=== PATIENT | female | born 1965 | race Caucasian/White ===

== ENCOUNTER 2017-04-02 19:02 | Emergency (ER) | payer BC ==
[2017-04-02 19:15] VITALS: BP 171/86; PULSE 89; RESP 18; TEMP 97.1
[2017-04-02] MEDS ORDERED: HYDROcodone/APAP 5-325MG 1 EACH TAB PO STA (19:30)
[2017-04-02] MEDS ORDERED: ORPHENADRINE 30 MG/ML 2 ML VIAL IM STA (19:31)
--- NOTE | 2017-04-02 19:38 | ED ---
Neck Injury/Pain HPI - General Chief Complaint: Neck Pain/Injury Stated Complaint: neck pain Time Seen by Provider: 04/02/17 19:21 Source: RN notes reviewed Mode of arrival: ambulatory Limitations: no limitations - History of Present Illness Initial Comments: 51-year-old female presents to the ER with her daughter with moderate to severe neck pain. She states that she has been doing some increased work at the cabin and had gradual onset of increased neck pain and muscle stiffness on the left hand side of her neck. She states that she does not remember a specific injury or trauma that caused the discomfort. The pain started yesterday afternoon and has increased since then. She has decreased range of motion with her neck due to stiffness and pain. She states that she did try to take some over-the- counter pain medication however this did not help. She denies any other symptoms including headache, vision change, ear pain, swelling, difficulty swallowing, arm numbness or tingling, loss of bladder or bowel control, vomiting. - Related Data Home Medications Medication Instructions Recorded Confirmed Citalopram Hydrobromide [CeleXA] 20 mg PO DAILY 03/05/15 04/02/17 Minocycline HCl 100 mg PO 04/02/17 Previous Rx's Medication Instructions Recorded Cyclobenzaprine [Flexeril] 5 mg PO TID #20 tablet 04/02/17 Diazepam [Valium] 10 mg PO TID #20 tablet 04/02/17 HYDROcodone/APAP 5-325MG [[place] 5] 1 each PO Q6HR PRN #20 tab 04/02/17 Allergies Allergy/AdvReac Type Severity Reaction Status Date / Time Penicillins Allergy Rash/Hives Verified 04/28/15 08:14 Review of Systems ROS Statement: Those systems with pertinent positive or pertinent negative responses have been documented in the HPI. ROS Other: All systems not noted in ROS Statement are negative. Past Medical History Past Medical History: Skin Disorder Additional Past Medical History / Comment(s): wound lt inner leg above ankle History of Any Multi-Drug Resistant Organisms: None Reported Past Surgical History: Cholecystectomy, Hysterectomy Past Anesthesia/Blood Transfusion Reactions: No Reported Reaction Past Psychological History: No Psychological Hx Reported Smoking Status: Never smoker Past Alcohol Use History: Occasional Past Drug Use History: None Reported - Past Family History Mother Family Medical History: No Reported History General Exam Limitations: no limitations General appearance: alert, in distress (Secondary to pain) Head exam: Present: atraumatic, normocephalic Eye exam: Present: normal appearance, PERRL, EOMI Pupils: Present: normal accommodation ENT exam: Present: normal exam Neck exam: Present: normal inspection, tenderness (Left lateral neck), other ( Decreased range of motion with rotation flexion and extension secondary to pain. Strength is a 3 out of 4 with rotation. Negative cervical compression test. Negative radiculopathy. Negative for any masses upon palpation.) Respiratory exam: Present: normal lung sounds bilaterally Cardiovascular Exam: Present: regular rate, normal rhythm Extremities exam: Present: normal inspection, full ROM (Bilaterally), normal capillary refill, other (Sensation intact) Back exam: Present: normal inspection, other (Negative spinous process or paraspinal tenderness from cervical to lumbar spine.) Neurological exam: Present: alert, oriented X3, CN II-XII intact Psychiatric exam: Present: normal affect, normal mood Skin exam: Present: warm, dry, intact Course Vital Signs 04/02/17 19:12 Temperature 97.1 F L Pulse Rate 89 Respiratory 18 Rate Blood Pressure 171/86 O2 Sat by Pulse 100 Oximetry Medical Decision Making - Medical Decision Making 51-year-old female presented to the ER with gradual onset neck pain from yesterday afternoon to today. She does describe it at this point is moderate to severe and she is unable to turn her neck fully. She states that she was having some increased work over the weekend however do not have a specific injury or trauma. Upon examination there are no masses, no neurological defects , no radicular symptoms. This is consistent with a neck sprain and will treat the stiffness with muscle relaxants and pain relievers to get her to be able to sleep tonight. The patient has no drug-seeking behavior and does not take pain medications or muscle relaxants on a regular basis. We'll recommend Valium at night and Flexeril during the day so that she can still work and drive. Can take [place] as needed for discomfort. Patient was warned of side effects of medications and to take appropriately. She is to follow-up with her primary care physician this week. Also recommended outpatient treatment with heat and topical medications. To return to the ER with any new or worsening signs or symptoms. Discussed warning signs of loss of bladder or bowel control numbness or tingling in the arm in a neurological deficits. Patient voiced understanding and was agreeable to treatment plan. Disposition Clinical Impression: Strain of neck muscle Disposition: HOME SELF-CARE Condition: Good Instructions: Acute Neck Pain (ED) Additional Instructions: Follow-up with primary care physician this week. To return to the ER if any new or worsening symptoms or concerns. Prescriptions: Cyclobenzaprine [Flexeril] 5 mg PO TID #20 tablet Diazepam [Valium] 10 mg PO TID #20 tablet HYDROcodone/APAP 5-325MG [[place] 5] 1 each PO Q6HR PRN #20 tab PRN Reason: Pain Referrals: Nonstaff,Physician [Primary Care Provider] - 1-2 days Time of Disposition: 19:59
== END 2017-04-02 20:11 | disposition home or self-care (01) ==
LOC: EC 19:02
DX: S16.1XXA Strain of muscle, fascia and tendon at neck level, initial encounter (principal); Z79.899 Other long term (current) drug therapy; Z88.0 Allergy status to penicillin; X58.XXXA Exposure to other specified factors, initial encounter; Y93.89 Activity, other specified
CPT/HCPCS: 99283; 96372; J2360

== ENCOUNTER → 2019-08-12 | Outpatient (CLI) | payer BC ==
--- NOTE | 2019-08-12 10:00 | MM ---
Reason for exam: screening (asymptomatic). Last mammogram was performed 4 years and 6 months ago. History: Family history of breast cancer in mother at age 63. Physical Findings: A clinical breast exam by your physician is recommended on an annual basis and results should be correlated with mammographic findings. MG Screening Mammo w CAD Bilateral CC and MLO view(s) were taken. Prior study comparison: February 16, 2015, bilateral MG screening mammo w CAD. The breast tissue is heterogeneously dense. This may lower the sensitivity of mammography. No significant changes when compared with prior studies. ASSESSMENT: Benign, BI-RAD 2 RECOMMENDATION: Routine screening mammogram of both breasts in 1 year.
== END | disposition home or self-care (01) ==
LOC: RADMAMWWP 07:11
PROVIDERS: ATTEND Internal Medicine
DX: Z12.31 Encounter for screening mammogram for malignant neoplasm of breast (principal)
CPT/HCPCS: 77067

== ENCOUNTER 2021-09-11 17:19 | Emergency (ER) | payer BC ==
[2021-09-11] MEDS ORDERED: KETOROLAC 30 MG/ML 1 ML VIAL IVP STA (20:21)
[2021-09-11] MEDS ORDERED: SODIUM CHLORIDE 0.9% 500 ML 500 ML IV ONE (20:21)
--- NOTE | 2021-09-11 20:23 | ED ---
URI HPI - General Chief Complaint: Upper Respiratory Infection Stated Complaint: covid+/antibodies Time Seen by Provider: 09/11/21 20:04 Source: patient Mode of arrival: ambulatory Limitations: no limitations - History of Present Illness Initial Comments: 56 year-old female patient presents to the emergency department requesting antibody infusion for COVID. She received her positive result and was instructed to come in by her primary care physician. She states she has been had symptoms for the last 4 days. Reports cough, headache, fatigue. Denies chest pain or shortness of breath. Denies any vomiting, diarrhea, or lack of appetite. She states she is otherwise healthy. Taking any medication for her symptoms at this time. Her was recently sick with similar symptoms. - Related Data Home Medications Medication Instructions Recorded Confirmed Citalopram Hydrobromide [CeleXA] 20 mg PO DAILY 03/05/15 04/02/17 Minocycline HCl [Minocin] 100 mg PO 04/02/17 Previous Rx's Medication Instructions Recorded Cyclobenzaprine [Flexeril] 5 mg PO TID #20 tablet 04/02/17 Diazepam [Valium] 10 mg PO TID #20 tablet 04/02/17 HYDROcodone/APAP 5-325MG [[place] 5] 1 each PO Q6HR PRN #20 tab 04/02/17 Allergies Allergy/AdvReac Type Severity Reaction Status Date / Time Penicillins Allergy Rash/Hives Verified 09/11/21 18:12 Review of Systems ROS Statement: Those systems with pertinent positive or pertinent negative responses have been documented in the HPI. ROS Other: All systems not noted in ROS Statement are negative. Past Medical History Past Medical History: Skin Disorder Additional Past Medical History / Comment(s): wound lt inner leg above ankle History of Any Multi-Drug Resistant Organisms: None Reported Past Surgical History: Cholecystectomy, Hysterectomy Past Anesthesia/Blood Transfusion Reactions: No Reported Reaction Past Psychological History: No Psychological Hx Reported Smoking Status: Never smoker Past Alcohol Use History: Occasional Past Drug Use History: None Reported - Past Family History Mother Family Medical History: No Reported History General Exam Limitations: no limitations General appearance: alert, in no apparent distress, other (This is a well- developed, well-nourished adult female in no acute distress.) ENT exam: Present: normal exam, normal oropharynx, mucous membranes moist Respiratory exam: Present: normal lung sounds bilaterally. Absent: respiratory distress, wheezes, rales, rhonchi, stridor Cardiovascular Exam: Present: regular rate, normal rhythm, normal heart sounds. Absent: systolic murmur, diastolic murmur, rubs, gallop, clicks GI/Abdominal exam: Present: soft, normal bowel sounds. Absent: distended, tenderness, guarding, rebound, rigid Neurological exam: Present: alert, oriented X3, CN II-XII intact Psychiatric exam: Present: normal affect, normal mood Skin exam: Present: warm, dry, intact, normal color. Absent: rash Course Vital Signs 09/11/21 09/11/21 09/11/21 18:08 20:17 20:19 Temperature 98.2 F Pulse Rate 93 72 Respiratory 18 19 19 Rate Blood Pressure 144/91 151/99 O2 Sat by Pulse 99 100 Oximetry 09/11/21 23:00 Temperature 97.0 F L Pulse Rate 67 Respiratory 20 Rate Blood Pressure 138/64 O2 Sat by Pulse 99 Oximetry Medical Decision Making - Medical Decision Making 56-year-old female patient presents to the emergency department requesting infusion of monoclonal antibodies after testing positive for COVID-19. Physical examination is unremarkable. Risks and benefits of treatment were explained. She did receive the infusion and tolerated it well. Discharge follow-up through primary care physician for recheck in 1-2 days. Return parameters were discussed in detail. She verbalizes understanding and agrees with this plan. My attending is Dr. Crum. Disposition Clinical Impression: COVID-19 Disposition: HOME SELF-CARE Condition: Good Instructions (If sedation given, give patient instructions): Coronavirus Disease 2019 (COVID-19) Is patient prescribed a controlled substance at d/c from ED?: No Referrals: Nonstaff,Physician [REFERRING] - 1-2 days
[2021-09-11] MEDS ORDERED: CASIRIVIMAB (REGN10933) (EUA) 600 MG, IMDEVIMAB (REGN10987) (EUA) 600 MG in SODIUM CHLO... IVPB ONE (20:45)
[2021-09-11] MEDS ORDERED: SODIUM CHLORIDE 0.9% 50 ML IVPB ONE (20:45)
[2021-09-11 23:12] VITALS: BP 138/64; PULSE 67; RESP 20; TEMP 97
== END 2021-09-11 23:19 | disposition home or self-care (01) ==
LOC: EC 17:19
DX: U07.1 COVID-19 (principal); Z88.0 Allergy status to penicillin
CPT/HCPCS: 99283; 96365; 96375; J1885; Q0243

== ENCOUNTER → 2021-12-28 | Outpatient (CLI) | payer BC ==
--- NOTE | 2021-12-28 10:25 | XR ---
EXAMINATION TYPE: XR chest 2V DATE OF EXAM: 12/28/2021 COMPARISON: NONE TECHNIQUE: PA and lateral views submitted. HISTORY: Cough FINDINGS: The lungs are clear and there is no pneumothorax, pleural effusion, or focal pneumonia. Hyperinflati on. Hypertrophic and degenerative change of the spine. No overt failure. Biapical pleural thickening. Arthropathy of the right shoulder. No overt failure. IMPRESSION: 1. No acute process.
== END | disposition home or self-care (01) ==
LOC: RADXRMAIN 06:48
PROVIDERS: ATTEND Internal Medicine
DX: J01.90 Acute sinusitis, unspecified (principal); J18.0 Bronchopneumonia, unspecified organism
CPT/HCPCS: 71046

== ENCOUNTER → 2023-09-27 | Outpatient (CLI) | payer BC ==
--- NOTE | 2023-09-28 08:27 | XR ---
EXAMINATION TYPE: XR knee complete bilateral DATE OF EXAM: 09/27/2023 5:58 PM CLINICAL INDICATION:Female, 58 years old with history of M17.0 BILATERAL PRIMARY OSTEOARTHRITIS OF KN EE; PHH COMPARISON: None. TECHNIQUE: XR knee complete bilateral; examined in Frontal, lateral and oblique projections. FINDINGS: No evidence of any acute osseous pathology, soft tissue swelling, or joint effusion is no brando. Tricompartmental osteophyte formation involving the femoral condyles, tibial plateau and patella. Mi ld joint space narrowing. IMPRESSION: 1. No acute osseous pathology. 2. Mild bilateral tricompartmental osteoarthritic changes.
== END | disposition home or self-care (01) ==
LOC: RADXRMAIN 17:39
PROVIDERS: ATTEND Internal Medicine
DX: M17.0 Bilateral primary osteoarthritis of knee (principal)

== ENCOUNTER → 2024-09-18 | Outpatient (CLI) | payer BC ==
--- NOTE | 2024-09-19 09:54 | MR ---
EXAMINATION TYPE: MRI without IV contrast DATE OF EXAM: 09/18/2024 6:37 PM COMPARISON: None. CLINICAL INDICATION: Female, 59 years old with history of M67.441 GANGLION, RIGHT HAND, right index f jesenia mass/cyst, swelling, and redness near tip. rule out osteomyelitis Standard multiplanar, multisequence MRI departmental protocol Multiplanar, multisequence images of the right hand were acquired without contrast. FINDINGS: Negative for acute fracture or suspicious marrow replacement. Multiple small cysts within the first, second and third metacarpal heads which may be enthesopathic, degenerative or related to intraosseous ganglia. No significant joint effusion. Mild first through third MCP joint osteoarthritis including joint spac e narrowing and small marginal osteophytes. Mild tenosynovitis of the first through fourth flexor tendons at the level of the metacarpal heads. M ild edema surrounding the second flexor tendon at the level of the middle and distal phalanges. No fl exor tendon tear or tendon displacement. Extensor tendons are intact. Collateral ligaments are intact. Mild diffuse soft tissue edema of the d istal second digit. No focal fluid collections. IMPRESSION: 1. Negative for osteomyelitis. 2. Mild diffuse edema of the distal second digit mostly surrounding the flexor tendon, however there is no tendon tear or significant distal tenosynovitis. 3. Mild degenerative changes as described above. 4. Mild first through fourth digit flexor tenosynovitis at the level of the metacarpal heads. [facility], Workstation: [id number], 09/19/2024 9:52 AM
== END | disposition home or self-care (01) ==
LOC: RADMRIMAIN 17:47
PROVIDERS: ATTEND Orthopaedic Surgery
DX: M67.441 Ganglion, right hand (principal); M65.90 Unspecified synovitis and tenosynovitis, unspecified site; R60.9 Edema, unspecified

== ENCOUNTER 2024-10-09 17:24 | Emergency (ER) | payer BC ==
[2024-10-09] MEDS: CLINDAMYCIN 150 MG CAP PO STA (18:12)
[2024-10-09] MEDS: ONDANSETRON ODT 4 MG TAB PO STA (18:12)
--- NOTE | 2024-10-09 18:12 | ED ---
ENT HPI - General Chief complaint: ENT Stated complaint: R ear pain Time Seen by Provider: 10/09/24 17:34 Source: patient, family Mode of arrival: wheelchair Limitations: no limitations - History of Present Illness Initial comments: 59-year-old female presents emergency department reporting right ear pain. States that for the past week she has had symptoms of cough, congestion. Tonight the patient began having an excruciating right ear soreness. She does report to multiple ear infections in the past. She denies any fevers. Admits nausea without vomiting. No chest pain or difficulty breathing. No diarrhea. No sick contacts with similar symptoms. She is taking Tylenol for the pain. No other alleviating, precipitating or modifying factors - Related Data Home Medications Medication Instructions Recorded Confirmed Citalopram Hydrobromide [CeleXA] 20 mg PO DAILY 03/05/15 04/02/17 Minocycline HCl [Minocin] 100 mg PO 04/02/17 Previous Rx's Medication Instructions Recorded Cyclobenzaprine [Flexeril] 5 mg PO TID #20 tablet 04/02/17 HYDROcodone/APAP 5-325MG [[place] 5] 1 each PO Q6HR PRN #20 tab 04/02/17 diazePAM [Valium] 10 mg PO TID #20 tablet 04/02/17 Codeine Phosphate/Guaifenesin 5 ml PO Q6H 3 Days #60 ml 10/09/24 [Codeine Phosphate/Guaifenesin 10-100 mg/5 ml] Ondansetron Odt [Zofran Odt] 4 mg PO Q8HR PRN #30 tab 10/09/24 clindamycin HCL 300 mg PO TID #21 capsule 10/09/24 Allergies Allergy/AdvReac Type Severity Reaction Status Date / Time Penicillins Allergy Rash/Hives Verified 09/11/21 18:12 Review of Systems ROS Statement: Those systems with pertinent positive or pertinent negative responses have been documented in the HPI. ROS Other: All systems not noted in ROS Statement are negative. Past Medical History Past Medical History: Skin Disorder Additional Past Medical History / Comment(s): wound lt inner leg above ankle History of Any Multi-Drug Resistant Organisms: None Reported Past Surgical History: Cholecystectomy, Hysterectomy Past Anesthesia/Blood Transfusion Reactions: No Reported Reaction Past Psychological History: No Psychological Hx Reported Smoking Status: Never smoker Past Alcohol Use History: Occasional Past Drug Use History: None Reported - Past Family History Mother Family Medical History: No Reported History General Exam Limitations: no limitations General appearance: alert, in no apparent distress Head exam: Present: atraumatic, normocephalic, normal inspection Eye exam: Present: normal appearance, PERRL, EOMI. Absent: scleral icterus, conjunctival injection, periorbital swelling ENT exam: Present: mucous membranes moist, other (Left tympanic membrane is shiny and franz. Right tympanic membrane is bulging, erythematous and opaque) Neck exam: Present: normal inspection. Absent: tenderness, meningismus, lymphadenopathy Respiratory exam: Present: normal lung sounds bilaterally. Absent: respiratory distress, wheezes, rales, rhonchi, stridor Cardiovascular Exam: Present: regular rate, normal rhythm, normal heart sounds. Absent: systolic murmur, diastolic murmur, rubs, gallop, clicks GI/Abdominal exam: Present: soft, normal bowel sounds. Absent: distended, tenderness, guarding, rebound, rigid Extremities exam: Present: normal inspection, full ROM, normal capillary refill. Absent: tenderness, pedal edema, joint swelling, calf tenderness Back exam: Present: normal inspection Neurological exam: Present: alert, oriented X3, CN II-XII intact Psychiatric exam: Present: normal affect, normal mood Skin exam: Present: warm, dry, intact, normal color. Absent: rash Course Vital Signs 10/09/24 10/09/24 17:26 18:26 Temperature 98.6 F 98.2 F Pulse Rate 98 96 Respiratory 18 20 Rate Blood Pressure 147/85 149/80 O2 Sat by Pulse 97 96 Oximetry Medical Decision Making - Medical Decision Making Was pt. sent in by a medical professional or institution (, PA, RETORT SETTER, urgent care, hospital, or care home...) When possible be specific @ -No Did you speak to anyone other than the patient for history (EMS, parent, family, police, friend...)? What history was obtained from this source @ -No Did you review nursing and triage notes (agree or disagree)? Why? @ -I reviewed and agree with nursing and triage notes Were old charts reviewed (outside hosp., previous admission, EMS record, old EKG, old radiological studies, urgent care reports/EKG's, care home records)? Report findings @ -No old charts were reviewed Differential Diagnosis (chest pain, altered mental status, abdominal pain women, abdominal pain men, vaginal bleeding, weakness, fever, dyspnea, syncope, headache, dizziness, GI bleed, back pain, seizure, CVA, palpatations, mental health, musculoskeletal)? @ -Otitis media, otitis externa, influenza, COVID EKG interpreted by me (3pts min.). @ -Not done X-rays interpreted by me (1pt min.). @ -None done CT interpreted by me (1pt min.). @ -None done U/S interpreted by me (1pt. min.). @ -None done What testing was considered but not performed or refused? (CT, X-rays, U/S, labs)? Why? @ -4 Plex swab was considered however patient refused What meds were considered but not given or refused? Why? @ -None Did you discuss the management of the patient with other professionals (professionals i.e. , PA, RETORT SETTER, lab, RT, psych nurse, psychotherapist social worker, cable braider, teacher, customer service security officer, keycase assembler)? Give summary @ -No Was smoking cessation discussed for >3mins.? @ -No Was critical care preformed (if so, how long)? @ -No Were there social determinants of health that impacted care today? How? (Homelessness, low income, unemployed, alcoholism, drug addiction, transportation, low edu. Level, literacy, decrease access to med. care, long term, rehab)? @ -No Was there de-escalation of care discussed even if they declined (Discuss DNR or withdrawal of care, Hospice)? DNR status @ -No What co-morbidities impacted this encounter? (DM, HTN, Smoking, COPD, CAD, Cancer, CVA, ARF, Chemo, Hep., AIDS, mental health diagnosis, sleep apnea, morbid obesity)? @ -None Was patient admitted / discharged? Hospital course, mention meds given and route, prescriptions, significant lab abnormalities, going to OR and other pertinent info. @ -Upon arrival patient seen and evaluated in room 30. thorough history and physical exam was performed. Patient is offered a four Plex swab however refused as she did take a COVID test at home which was negative. Patient was given a dose of antibiotics for her right otitis media. She was offered Tessalon Perles however refused. I did offer treatment with codeine cough syrup for which she was agreeable. She was given a Zofran for her nausea. Patient was discharged home at this time. Take the prescribed medications as they are instructed and follow-up with her doctor in 2 to 4 days for reevaluation of her symptoms. Return for any new or worsening symptoms. Patient agreeable to plan was discharged in stable condition Undiagnosed new problem with uncertain prognosis? @ -No Drug Therapy requiring intensive monitoring for toxicity (Heparin, Nitro, Insulin, Cardizem)? @ -No Were any procedures done? @ -No Diagnosis/symptom? @ -Acute right ear pain, acute otitis media, acute cough Acute, or Chronic, or Acute on Chronic? @ -Acute Uncomplicated (without systemic symptoms) or Complicated (systemic symptoms)? @ -Uncomplicated Side effects of treatment? @ -No Exacerbation, Progression, or Severe Exacerbation? @ -No Poses a threat to life or bodily function? How? (Chest pain, [place], [place], pneumonia, PE, COPD, DKA, ARF, appy, cholecystitis, CVA, Diverticulitis, Homicidal, Suicidal, threat to staff... and all critical care pts) @ -No Disposition Clinical Impression: Otitis media, Cough Disposition: HOME SELF-CARE Condition: Stable Instructions (If sedation given, give patient instructions): Ear Infection (ED) Additional Instructions: Please take the medications as you have been prescribed as they are directed. Follow-up with your doctor in 2 to 4 days and return for any new or worsening symptoms Prescriptions: clindamycin HCL 300 mg PO TID #21 capsule Codeine Phosphate/Guaifenesin [Codeine Phosphate/Guaifenesin 10-100 mg/5 ml] 5 ml PO Q6H 3 Days #60 ml Ondansetron Odt [Zofran Odt] 4 mg PO Q8HR PRN #30 tab PRN Reason: Nausea Is patient prescribed a controlled substance at d/c from ED?: Yes When asked, does pt state using other controlled substances?: No If prescribed controlled substance>3 days was MAPS reviewed?: Prescribed <3 Days Referrals: Bry Arguelles MD [Primary Care Provider] - 1-2 days Time of Disposition: 18:12
[2024-10-09] MEDS: guaiFENesin-DM 100-10MG/5ML 10 ML CUP PO STA (18:22)
[2024-10-09 18:27] VITALS: BP 149/80; PULSE 96; RESP 20; TEMP 98.2
== END 2024-10-09 18:27 | disposition home or self-care (01) ==
LOC: EC 17:24
DX: H66.91 Otitis media, unspecified, right ear (principal); R05.9 Cough, unspecified; Z88.0 Allergy status to penicillin
CPT/HCPCS: 99282

== ENCOUNTER → 2024-12-10 | Outpatient (CLI) | payer BC ==
[2024-12-10 19:24] LABS: HCT 39.3 % (37.2-46.3); HGB 13.1 g/dL (12.0-15.0); MCH 32.1 pg (27.0-32.0); MCHC 33.3 g/dL (32.0-37.0); MCV 96.3 FL (80.0-97.0); Mean Platelet Volume 9.8 FL (9.5-12.2); NRBC Per 100 WBC 0 X 10*3/uL (0.00-0.01); Platelet Count 246 X 10*3/uL (140-440); RBC 4.08 X 10*6/uL (4.10-5.20); RDW 14.2 % (11.5-14.5); WBC 6.69 X 10*3/uL (4.50-10.00)
[2024-12-10 19:48] LABS: Erythrocyte Sedimentation Rate 28 mm/Hr (0-30)
[2024-12-11 09:24] LABS: HLA B27 POSITIVE
== END | disposition home or self-care (01) ==
LOC: LABWHC1 14:40
PROVIDERS: ATTEND Ophthalmology
DX: M43.28 Fusion of spine, sacral and sacrococcygeal region (principal); M54.9 Dorsalgia, unspecified
CPT/HCPCS: 36415; 85027; 85652; 86140; 86812

== ENCOUNTER → 2024-12-26 | Outpatient (CLI) | payer BC ==
[2024-12-26 15:58] LABS: Hepatitis A Antibody IgM Nonreactive (Nonreactive); Hepatitis B Core IgM Nonreactive (Nonreactive); Hepatitis B Surface Antigen Nonreactive (Nonreactive); Hepatitis C IgG Antibody Nonreactive (Nonreactive)
[2024-12-27 09:37] LABS: HLA B27 POSITIVE
== END | disposition home or self-care (01) ==
LOC: LABWHC1 07:07
PROVIDERS: ATTEND Internal Medicine
DX: H20.011 Primary iridocyclitis, right eye (principal); I10 Essential (primary) hypertension; F32.0 Major depressive disorder, single episode, mild; L40.0 Psoriasis vulgaris
CPT/HCPCS: 36415; 80074; 85652; 86038; 86140; 86780; 86812

== ENCOUNTER → 2025-04-11 | Outpatient (CLI) | payer BC ==
--- NOTE | 2025-04-11 18:07 | US ---
EXAMINATION TYPE: US venous doppler duplex LE LT DATE OF EXAM: 04/11/2025 3:25 PM COMPARISON: NONE CLINICAL INDICATION: Female, 59 years old with history of M17.0 BILATERAL PRIMARY OSTEOARTHRITIS OF K NEE; scar on left ankle at former injury 30 yrs ago, pain at site now, no h/o dvt TECHNIQUE: The lower extremity deep venous system is examined utilizing real time linear array sonog rosi with graded compression, color doppler sonography, and spectral doppler. SIDE PERFORMED: Left FINDINGS: VESSELS IMAGED: Common Femoral Vein Deep Femoral Vein Greater Saphenous Vein * Femoral Vein Popliteal Vein Small Saphenous Vein * Proximal Calf Veins (* superficial vessels) Left Leg: Negative for DVT, Color Doppler imaging shows patency of the vessels. Spectral waveforms a re within normal limits. IMPRESSION: No ultrasound evidence for deep venous thrombosis. [facility], , 04/11/2025 6:04 PM
== END | disposition home or self-care (01) ==
LOC: RADUSWWP 14:56
PROVIDERS: ATTEND Internal Medicine
DX: M17.0 Bilateral primary osteoarthritis of knee (principal); I82.402 Acute embolism and thrombosis of unspecified deep veins of left lower extremity